=== PATIENT | male | born 1965 | race American Indian/Alaskan Native ===

== ENCOUNTER 2022-02-10 09:12 | Outpatient (CLI) | payer OTHER ==
[2022-02-10 09:40] LABS: Hematocrit 38.3 % (35.5-45.6); Hemoglobin 13.3 gm/dl (11.8-15.2); Mean Corpuscular HGB Conc 35 % (32-34); Mean Corpuscular Volume 94 fl (84-94); Red Blood Count 4.06 M/mm3 (3.65-5.03); Red Cell Distribution Width 15.1 % (13.2-15.2)
[2022-02-10 09:43] LABS: Platelet Count 48 K/mm3 (140-440)
[2022-02-10 10:40] LABS: Basophils % (Manual) 0 % (0.0-1.8); Eosinophils % (Manual) 0 % (0.0-4.3); Total Cells Counted 100
[2022-02-10 10:41] LABS: Large Platelets Few; Platelet Estimate Consistent w Auto; Target Cells Few
== END 2022-02-10 09:13 | disposition home or self-care (01) ==
LOC: LAB 09:12
PROVIDERS: ATTEND Internal Medicine
DX: Z02.71 Encounter for disability determination (principal)
CPT/HCPCS: 36415; 85007; 85025